=== PATIENT | female | born 1985 | race African-American/Black ===

== ENCOUNTER 2016-08-28 08:00 | Inpatient (IN) | payer OTHER ==
[~2016-08-28 08:00] MED LIST: CITRIC ACID/SODIUM CITRATE 30 ML UNIT-DOSE CUP PO ONE; ELECTROLYTE-148 SOLN 500 ML IV ONE
[2016-08-28 08:30] VITALS: BMI 32.5
[2016-08-28] MEDS ORDERED: ELECTROLYTE-148 SOLN 1,000 ML IV SCH (08:30)
[2016-08-28] MEDS ORDERED: ALBUTEROL SO4 6.7 GM HFA INHALER IH PRN (10:00)
--- NOTE | 2016-08-28 10:09 | HP ---
Past Medical History - Admission Chief Complaint: Here for repeat c section History of Present Illness: 31 y/o P1 with h/o previous c section and currently with SIUP at 39 weeks (EDC by dates consistent with ultrasound) here for scheduled repeat delivery. uncomplicated. O positive blood type, HIV negative, GBS positive. +FM, no VB/LOF/CTx. Previous c section 2009 complicated by pre Eclampsia - pt with normal BPS throughout this . No other complaints/ concerns. 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 Weeks Gestation by Dates: 37.6 ...EDC by Dates: 09/12/16 ...EDC by Sono: 09/03/16 Heme/Onc: No: Anemia Infectious Disease: No: HIV, MRSA, STD's Psych: No: Anxiety, Bipolar, Depression Endocrine: No: Diabetes Mellitus, Hyperthyroidism, Hypothyroidism - Past Surgical History Past Surgical History: Yes: Hx Myomectomy: No Hx Transabdominal Cerclage: No - Smoking History Smoking history: Never smoked Have you smoked in the past 12 months: No - Alcohol/Substance Use Hx Alcohol Use: No - Social History Usual Living Arrangement: Yes: With Significant Other ADL: Independent History of Recent Travel: No Home Medications - Allergies Allergies/Adverse Reactions: Allergies Allergy/AdvReac Type Severity Reaction Status Date / Time No Known Allergies Allergy Verified 08/28/16 08:11 - Home Medications Home Medications: Ambulatory Orders Albuterol Sulfate Inhaler - [Ventolin Hfa Inhaler -] 1 puff IH BID 03/01/16 Vit/Iron Fumarate/FA [ Tablet] 1 each PO DAILY 03/01/16 Review of Systems - Review of Systems Constitutional: reports: No Symptoms Eyes: reports: No Symptoms HENT: reports: No Symptoms Neck: reports: No Symptoms Cardiovascular: reports: No Symptoms Respiratory: reports: No Symptoms Gastrointestinal: reports: No Symptoms Genitourinary: reports: No Symptoms Breasts: reports: No Symptoms Reported Musculoskeletal: reports: No Symptoms Integumentary: reports: No Symptoms Neurological: reports: No Symptoms Endocrine: reports: No Symptoms Hematology/Lymphatic: reports: No Symptoms Psychiatric: reports: No Symptoms Physical Exam - Maternity Vital Signs: Vital Signs Temperature 98.0 F 08/28/16 08:17 Pulse Rate 74 08/28/16 08:17 Respiratory Rate 20 08/28/16 08:17 Blood Pressure 116/66 08/28/16 08:17 O2 Sat by Pulse Oximetry (%) Constitutional: Yes: Well Nourished, No Distress, Calm HENT: Yes: Atraumatic, Normocephalic, Other Neck: Yes: Supple Cardiovascular: Yes: Regular Rate and Rhythm Lungs: Clear to auscultation - Abdominal Exam/OB Fundal Height: 40 Number of Fetuses: Single Presentation: Vertex Contractions: No - Vaginal Exam/OB Vaginal Bleediing: No Amniotic Membrane Status: Intact Presentation: Vertex/Position - Physical Exam Psychiatric: Yes: Alert, Oriented Hemorrhage Risk Assessment - Risk Factors Medium Risk Factors: Yes: Prior , uterine surgery,or multiple laparotomies High Risk Factors: Yes: None Risk Score: 1 Risk Level: Medium Risk Problem List - Problems (1) Term Code(s): Z34.80 - ENCOUNTER FOR SUPRVSN OF NORMAL , UNSP TRIMESTER (2) Asthma affecting , antepartum Code(s): O99.519 - DISEASES OF THE RESP SYS COMP , UNSP TRIMESTER J45.909 - UNSPECIFIED ASTHMA, UNCOMPLICATED Assessment/Plan 31 y/o here for repeat c section with SIUP - AFVSS - NPO -SCDs - Poole catheter - Consents signed, R/B/A discussed - nursery/anesthesia aware
[2016-08-28] MEDS: OXYTOCIN 20 UNITS in 0.9% NS 1,000 ML IV SCH ×3 (10:40→20:55)
[2016-08-28] MEDS ORDERED: TUBERCULIN PPD 5 TU/0.1ML SYRINGE (IN PATIENT USE ONLY) ID ONE (11:00)
[2016-08-28] MEDS ORDERED: ONDANSETRON 4 MG/2 ML VIAL IVPB PRN (11:03)
[2016-08-28] MEDS ORDERED: morphine SULFATE/Preservative Free 0.5 MG/ML (1cc Syringe) SPIN ONE (11:03)
[2016-08-28] MEDS ORDERED: METHYLERGONOVINE MALEATE 0.2 MG/1 ML AMP IM PRN (11:06)
[2016-08-28] MEDS ORDERED: IBUPROFEN 600 MG TABLET (FP) PO PRN (11:06)
[2016-08-28] MEDS ORDERED: SENNOSIDES/DOCUSATE COMBO (SENNA PLUS) TABLET (UD) PO PRN (11:06)
[2016-08-28] MEDS ORDERED: oxyCODONE HCL 5 MG TABLET PO PRN (11:10)
--- NOTE | 2016-08-28 12:27 | SURG ---
Surgery [address] Stenographer Note [address] Stenographer: Brent Collazo PA-C Date of Service: 08/28/16 Diagnosis: 39 weeks with single intrauterine Procedure: section I was present for the entirety of the operative procedure. For further detail, please refer to operative report. Visit type - Case Type Case Type: Scheduled Admission - New patient This patient is new to me today: Yes Date on this admission: 08/28/16
--- NOTE | 2016-08-28 12:30 | OP ---
<Brent Collazo - Last Filed: 08/28/16 12:28> Operative Note - Note: Operative Date: 08/28/16 Pre-Operative Diagnosis: 39 weeks SIUP, h/o Operation: section Post-Operative Diagnosis: Same as Pre-op Surgeon: Joyce Marsh Government Affairs Specialist: Brent Collazo Anesthesiologist/TRANSPORT NURSE: Sudeep Berger Anesthesia: Spinal Estimated Blood Loss (mls): 200 Drains, Volume Out (mls): 150 (hernandez) Fluid Volume Replaced (mls): 1,000 Operative Report Dictated: Yes <Joyce Marsh - Last Filed: 08/28/16 14:32> Operative Note - Note: Operative Date: 08/28/16 Pre-Operative Diagnosis: SIUP at 39 weeks, prior delivery Operation: repeat delivery Findings: normal bilateral fallopian tubes and ovaries Surgeon: Joyce Marsh Government Affairs Specialist: Brent Collazo Anesthesiologist/TRANSPORT NURSE: Sudeep Berger Anesthesia: Spinal Specimens Removed: placenta Estimated Blood Loss (mls): 600 (error in note above) Operative Report Dictated: Yes
[2016-08-28] MEDS: IBUPROFEN 800 MG/8 ML IJ IVPB PRN (14:48)
[2016-08-28 15:23] LABS: URINE MARIJUANA THC NEGATIVE ng/ml (CUTOFF=50)
[2016-08-28] MEDS: FERROUS SO4 325 MG TABLET (FP) PO SCH (17:22)
[2016-08-28] MEDS: CEFAZOLIN (PRE-DOCKED) 50 ML IVPB SCH (17:23)
[2016-08-29] MEDS: CEFAZOLIN (PRE-DOCKED) 50 ML IVPB SCH ×2 (02:39→09:56)
[2016-08-29] MEDS: IBUPROFEN 800 MG/8 ML IJ IVPB PRN (04:57)
[2016-08-29] MEDS: OXYTOCIN 20 UNITS in 0.9% NS 1,000 ML IV SCH (06:38)
--- NOTE | 2016-08-29 07:08 | PN ---
Post Progress Note - Subjective Subjective: Pt seen/evaluated. Doing well. Pain controlled. Hernandez catheter removed this a.m., no void yet. Tolerating clears, passing flatus. Minimal VB. NO other complaints. Baby transfered to [facility] for r/o myelomeningocele. Pt coping well. Type of Delivery: Repeat C/S Vital Signs: Vital Signs Temperature 98.0 F 08/29/16 06:00 Pulse Rate 69 08/29/16 06:00 Respiratory Rate 18 08/29/16 06:00 Blood Pressure 116/71 08/29/16 06:00 O2 Sat by Pulse Oximetry (%) 100 08/28/16 12:30 Uterus: Yes: Fundus Firm, Fundus below umbilicus Incision: Yes: Dressing dry and intact Abdomen/GI: Yes: Abdomen soft, Passing flatus, Tolerating PO. No: Abdominal Distention, Tender Lochia: Yes: Rubra Lochia, amount: Small Extremities: Yes: Calves non-tender. No: Edema Perineum: Yes: Intact Activity: Ambulating Problem List - Problems (1) Term Code(s): Z34.80 - ENCOUNTER FOR SUPRVSN OF NORMAL , UNSP TRIMESTER (2) Asthma affecting , antepartum Code(s): O99.519 - DISEASES OF THE RESP SYS COMP , UNSP TRIMESTER J45.909 - UNSPECIFIED ASTHMA, UNCOMPLICATED (3) delivery delivered Code(s): O82 - ENCOUNTER FOR DELIVERY WITHOUT INDICATION Assessment/Plan 31 y/o POD#1 s/p repeat delivery - AFVSS - CBC pending - hernandez catheter removed, awaiting void - advance diet as tolerated - PO pain meds - routine care
[2016-08-29] MEDS: FERROUS SO4 325 MG TABLET (FP) PO SCH ×2 (08:00→18:25)
[2016-08-29 08:36] LABS: BASOPHIL 0.5 % (0-2.0); EOSINOPHIL 0.5 % (0-4.5); MEAN CELL VOLUME 78.8 fl (80-96); MEAN PLT VOLUME 9.6 fl (7.5-11.1); NEUTROPHILS 79.7 % (42.8-82.8); PLATELET COUNT 137 K/MM3 (134-434); RDW 14.4 % (11.6-15.6); WHITE BLOOD COUNT 12.7 K/mm3 (4.0-10.0)
[2016-08-29] MEDS: ENOXAPARIN NA (PORCINE) 40 MG/0.4 ML DISP.SYRIN SQ SCH (09:18)
[2016-08-29] MEDS: PRENATAL VITAMINS W/ FOLIC ACID TABLET (FP) PO SCH (09:18)
[2016-08-29] MEDS: IBUPROFEN 600 MG TABLET (FP) PO PRN ×3 (09:59→23:36)
[2016-08-29] MEDS: SIMETHICONE 80 MG TAB.CHEW (FP) PO PRN ×4 (10:00→23:32)
[2016-08-29] MEDS: ACETAMINOPHEN 325 MG TABLET (FP) PO PRN ×2 (10:00→19:04)
--- NOTE | 2016-08-29 10:22 | PN ---
Progress Note (short form) - Note Progress Note: Anesthesia postop note 31 y/o F s/p spinal anesthesia for repeat section, duramorph for pain management POD#1, vss, pain well controlled, aaox3, sensorimotor intact distally. No anesthesia complications.
[2016-08-29] MEDS ORDERED: BISACODYL 10 MG SUPP.RECT RC PRN (11:06)
[2016-08-29] MEDS ORDERED: PNEUMOC 13-VAL CONJ-DIP CRM/PF 0.5 ML DISP.SYRIN IM ONE (14:00)
[2016-08-29] MEDS ORDERED: DIPHTH,PERTUSS(ACELL),TET 0.5 ML DISP.SYRIN IM ONE (14:00)
[2016-08-29] MEDS: oxyCODONE HCL 5 MG TABLET PO PRN ×2 (19:06→23:33)
[2016-08-30] MEDS: SIMETHICONE 80 MG TAB.CHEW (FP) PO PRN ×2 (04:52→08:50)
[2016-08-30] MEDS: IBUPROFEN 600 MG TABLET (FP) PO PRN ×2 (04:52→08:50)
[2016-08-30] MEDS: oxyCODONE HCL 5 MG TABLET PO PRN ×2 (04:53→08:49)
[2016-08-30] MEDS: FERROUS SO4 325 MG TABLET (FP) PO SCH (08:26)
[2016-08-30] MEDS: PRENATAL VITAMINS W/ FOLIC ACID TABLET (FP) PO SCH (11:04)
[2016-08-30] MEDS: ENOXAPARIN NA (PORCINE) 40 MG/0.4 ML DISP.SYRIN SQ SCH (11:04)
[2016-08-30 11:42] VITALS: BP 124/63; PULSE 71; TEMP 98.5
--- NOTE | 2016-09-02 14:20 | PATH ---
Surgical Pathology Report Patient Name: DAVID LENTZ [facility]. Rec. #: [id number] /Age/Gender: 1985 (Age: 31) / F Account: [id number] Location: 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 Specimen(s) Received PLACENTA Clinical History Previous for ???, 2008 Final Diagnosis PLACENTA, DELIVERY: FOCALLY DISRUPTED THIRD TRIMESTER PLACENTA WITH INTERVILLOUS FIBRIN DEPOSITION, FOCAL CALCIFICATION, THREE VESSEL UMBILICAL CORD AND UNREMARKABLE PLACENTAL MEMBRANES. Electronically Signed Miles Hairston M.D. Gross Description The specimen is received fresh labeled placenta and is a 583 gram, 19.0 x 14.0 x 3.2 cm. placenta with attached membranes and umbilical cord. The attached membranes are muhammad, translucent with focal opacities and insert marginally. The umbilical cord measures 43 cm. in length and averages 1.2 cm. in diameter. The cord inserts eccentrically, 2 cm. to the nearest margin. No true knots or strictures are identified. Cut surface of the umbilical cord reveals 3 vessels. The surface is andersen blue with moderate fibrin deposition and appropriate caliber vessels. The maternal surface is red-brown with focal defects. Sectioning reveals red-brown, spongy parenchyma. No lesions are identified. Adhesive Bandage Making Operator sections are submitted in three cassettes as follows: 1- membrane rolls and umbilical cord; 2-3- full thickness sections of placenta. /08/30/2016 [facility]08/30/2016
== END 2016-08-30 13:00 | disposition home or self-care (01) | DRG 540 ==
LOC: JLDR 08:00 → J3W 13:01
PROVIDERS: ADMIT Obstetrics & Gynecology; ATTEND Obstetrics & Gynecology
PROC: 10D00Z1 Extraction of Products of Conception, Low, Open Approach (ICD-10-PCS; principal; 2016-08-28)
DX: O34.211 Maternal care for low transverse scar from previous cesarean delivery (principal); O99.519 Diseases of the respiratory system complicating pregnancy, unspecified trimester; J45.909 Unspecified asthma, uncomplicated; Z3A.39 39 weeks gestation of pregnancy; Z37.0 Single live birth
CPT/HCPCS: 36415; 80307; 85025; 88307-TC; 90670; 90715

== ENCOUNTER 2017-05-16 12:27 | Emergency (ER) | payer OTHER ==
[2017-05-16 12:45] VITALS: BP 101/58; PULSE 73; TEMP 98.2; BMI 29.2
--- NOTE | 2017-05-16 13:28 | PDOC ---
History of Present Illness - General Chief Complaint: Cold Symptoms Stated Complaint: CONGESTION, FEVER - History of Present Illness Initial Comments: 05/16/17 21:26 This 32-year-old female presents to the emergency room with a complaint of a cough and fever. She states it's been going on for a few days. She is here to see about getting some relief. Past History - Past Medical History Allergies/Adverse Reactions: Allergies Allergy/AdvReac Type Severity Reaction Status Date / Time No Known Allergies Allergy Verified 05/16/17 12:42 Home Medications: Ambulatory Orders NK [No Known Home Medication] 05/16/17 Asthma: No Cancer: No Cardiac Disorders: No COPD: No Diabetes: No HTN: No Seizures: No Thyroid Disease: No - Reproductive History (#): 2 Para: 1 Spontaneous : 0 - Immunization History Immunization Up to Date: Yes - Suicide/Smoking/Psychosocial Hx Smoking History: Never smoked Have you smoked in the past 12 months: No Information on smoking cessation initiated: No Hx Alcohol Use: No Drug/Substance Use Hx: No Substance Use Type: None Hx Substance Use Treatment: No Review of Systems - Review of Systems Able to Perform ROS?: Yes Comments:: 05/16/17 21:26 General statement: Complaining of a cold symptoms Hematology: neg history of bleeding/blood thinners Skin: Neg for lesions, rash, bruising. HEENT: Positive nasal congestion symptoms as well as a fever Respiratory: Neg SOB or difficulty in breathing Cardiac: Neg chest pain GI: Neg pain, n/v : Neg problems on voiding MS: Neg for joint pain/stiffness, no edema Neuro: Neg for LOC, weakness, Endocrine: Neg for excess thirst/hunger, cold/heat intolerance, excess sweating Allergies: Neg for allergies *Physical Exam - Vital Signs Last Vital Signs Temp Pulse Resp BP Pulse Ox 98.2 F 73 15 101/58 98 05/16/17 12:43 05/16/17 12:43 05/16/17 12:43 05/16/17 12:43 05/16/17 12:43 - Physical Exam Comments: 05/16/17 21:27 General Appearance: This 32-year-old female with complaint of cough and cold V/S: hemodynamically stable, afebrile Skin: WNL of pt's skin color, no signs of pallor, mottling, cyanosis Head:symmetrical Eyes: EOM's intact, PERRLA Ears: denies pain Nose: patent however congested Throat: lips, teeth, gums, tongue, buccal mucos pink and moist Lungs: Chest symmetry equal. Cap refill <3 seconds. Lung sounds clear Cardiac: PMI at R 4MCL space, pos S1 and S2, regular rate. Abdomen: Soft, round, nontender : Not observed Muscularskeletal: Gait steady, ambulated in to ER, no edema +PMS Neuro: AAOx3, cognitively intact, speech clear and appropriate. Medical Decision Making - Medical Decision Making 05/16/17 21:28 Patient initially seen and examined. Patient is seen with a finding of a positive viral illness cold. Encouraged her to take *DC/Admit/Observation/Transfer Diagnosis at time of Disposition: Viral respiratory illness - Discharge Dispostion Disposition: HOME Condition at time of disposition: Stable Admit: No - Referrals - Patient Instructions Printed Discharge Instructions: DI for Viral Upper Respiratory Infection -- Adult Additional Instructions: Discharge instructions 1. Please follow up with your primary physician within the next few days and explain that you have been seen here in the Emergency Room. 2. If you experience any worsening of symptoms, please return to the ER 3. Rest 4. Drink plenty of water - Post Discharge Activity
== END 2017-05-16 13:31 | disposition home or self-care (01) ==
LOC: JERFT 12:27
DX: J06.9 Acute upper respiratory infection, unspecified (principal); B97.89 Other viral agents as the cause of diseases classified elsewhere
CPT/HCPCS: 99281-25

== ENCOUNTER 2018-05-29 12:39 | Emergency (ER) | payer OTHER ==
[2018-05-29 12:51] VITALS: BP 121/71; PULSE 65; TEMP 98.4; BMI 30.2
--- NOTE | 2018-05-29 13:25 | PDOC ---
History of Present Illness - General Chief Complaint: Rash Stated Complaint: HEADACHE Time Seen by Provider: 05/29/18 13:16 History Source: Patient - History of Present Illness Associated Symptoms: reports: shortness of breath Past History - Past Medical History Allergies/Adverse Reactions: Allergies Allergy/AdvReac Type Severity Reaction Status Date / Time No Known Allergies Allergy Verified 05/29/18 12:44 Home Medications: Ambulatory Orders Albuterol Sulfate Inhaler - [Ventolin HFA Inhaler -] 1 - 2 inh PO Q4H #1 inhaler 05/29/18 Asthma: No Cancer: No Cardiac Disorders: No COPD: No Diabetes: No HTN: No Seizures: No Thyroid Disease: No - Reproductive History (#): 2 Para: 1 Spontaneous : 0 - Immunization History Immunization Up to Date: Yes - Suicide/Smoking/Psychosocial Hx Smoking History: Never smoked Have you smoked in the past 12 months: No Information on smoking cessation initiated: No Hx Alcohol Use: Yes Drug/Substance Use Hx: No Substance Use Type: None Hx Substance Use Treatment: No Review of Systems - Review of Systems Constitutional: No: Chills, Fever Respiratory: Yes: Shortness of Breath. No: Wheezing Cardiac (ROS): Yes: Chest Tightness. No: Chest Pain Integumentary: Yes: Pruritus, Rash Neurological: Yes: Headache *Physical Exam - Vital Signs Last Vital Signs Temp Pulse Resp BP Pulse Ox 98.4 F 65 18 121/71 99 05/29/18 12:45 05/29/18 12:45 05/29/18 12:45 05/29/18 12:45 05/29/18 12:45 - Physical Exam General Appearance: Yes: Appropriately Dressed. No: Apparent Distress HEENT: positive: Normal Voice Neck: positive: Supple Respiratory/Chest: positive: Lungs Clear, Normal Breath Sounds. negative: Respiratory Distress, Wheezing Cardiovascular: positive: Regular Rate, S1, S2 Integumentary: positive: Dry, Warm, Other (non-specific flesh colored macular rash of varying sizes to upper extremities) Moderate Sedation - Procedure Monitoring Vital Signs: Procedure Monitoring Vital Signs Temperature 98.4 F 05/29/18 12:45 Pulse Rate 65 05/29/18 12:45 Respiratory Rate 18 05/29/18 12:45 Blood Pressure 121/71 05/29/18 12:45 O2 Sat by Pulse Oximetry (%) 99 05/29/18 12:45 Medical Decision Making - Medical Decision Making 05/29/18 13:20 33 yo F, h/o asthma, no admissions/intubations, here w/ multiple complaints that she attributes to mold infestation in her apartment. Patient states for the past month, she's noticed a pruritic rash to upper extremities, mostly to upper exts b/l and now experiencing more frequent asthma attacks. Also reports vague JOHNSON. Patient states her son has had similar breathing problems which his cheese wrapper attributes to mold infestation. Patient states she reached out to the health department but was told that she needs to contact housing department first. Patient states she is currently attempting to get in touch with them. Pt asx at this time. Well dale w/exam only remarkable for non-specific skin colored macules scattered throughout upper exts b/l. Will dc w/ derm referral and refill of asthma pump. Pt encourage to continue addressing mold issue at home and f/u with her PMD *DC/Admit/Observation/Transfer Diagnosis at time of Disposition: Rash - Discharge Dispostion Disposition: HOME Condition at time of disposition: Good - Prescriptions Prescriptions: Albuterol Sulfate Inhaler - [Ventolin HFA Inhaler -] 1 - 2 inh PO Q4H #1 inhaler - Referrals Referrals: Tanya Canales MD [Staff Physician] - - Patient Instructions Additional Instructions: Use your asthma pump for shortness of breath as needed Your rash is non-specific and you will need a infection prevention coordinator to further evaluate you Your concern today was that your symptoms are due to the mold in your apartment as they get worse when you are in that environment. We cannot prove or disprove that in the ED. If you believe this to be the case, please address with your landlord and continue to follow up with your PMD - Post Discharge Activity Forms/Work/School Notes: Back to Work
== END 2018-05-29 14:05 | disposition home or self-care (01) ==
LOC: JER 12:39
DX: R21 Rash and other nonspecific skin eruption (principal); J45.909 Unspecified asthma, uncomplicated
CPT/HCPCS: 99281-25

== ENCOUNTER 2023-11-08 14:39 | Emergency (ER) | payer OTHER ==
[2023-11-08 14:47] VITALS: BP 104/64; PULSE 74; RESP 18; TEMP 98.8
[2023-11-08 15:36] LABS: BASO % 0.9 % (0-2.0); EOS % 1.2 % (0-4.5); HEMATOCRIT 32.9 % (32.4-45.2); HEMOGLOBIN 10.9 GM/dL (10.7-15.3); LYMPH % 32.9 % (8-40); MCHC 33.1 g/dl (32.0-36.0); MEAN CELL VOLUME 72.3 fl (80-96); MEAN PLT VOLUME 8.2 fl (7.5-11.1); MONO % 5.5 % (3.8-10.2); NEUT % 59.5 % (42.8-82.8); PLATELET COUNT 225 10^3/uL (134-434); RBC 4.55 M/mm3 (3.60-5.2); RDW 21.9 % (11.6-15.6); WHITE BLOOD COUNT 7.7 K/mm3 (4.0-10.0)
[2023-11-08 15:39] LABS: EPI CELLS >36 /uL (0-25.1); HYALINE CASTS 0 /uL (0-3.1); URINE APPEARANCE CLEAR; URINE BACTERIA 1228 /uL (0-1359); URINE BILIRUBIN NEGATIVE (NEGATIVE); URINE COLOR YELLOW; URINE GLUCOSE (UA) NEGATIVE (NEGATIVE); URINE KETONE NEGATIVE (NEGATIVE); URINE LEUK ESTERASE NEGATIVE (NEGATIVE); URINE NITRITE NEGATIVE (NEGATIVE); URINE PROTEIN NEGATIVE (NEGATIVE); URINE RBC 8 /uL (0-23.9); URINE WBC 9 /uL (0-25.8)
[2023-11-08 15:55] LABS: POTASSIUM 4.1 mmol/L (3.5-5.1)
[2023-11-08 15:57] LABS: CALCIUM 8.7 mg/dL (8.5-10.1)
[2023-11-08 15:59] LABS: ALBUMIN 3.3 g/dl (3.4-5.0)
[2023-11-08 16:01] LABS: CREATININE 0.7 mg/dL (0.55-1.3)
[2023-11-08 16:02] LABS: ANISOCYTOSIS 2+; MACROCYTOSIS 0
[2023-11-08 16:03] LABS: BILIRUBIN,TOTAL 0.2 mg/dL (0.2-1); TOT PROT 6.5 g/dl (6.4-8.2)
[2023-11-08 19:34] LABS: EPI CELLS 24 /uL (0-25.1); HYALINE CASTS 1 /uL (0-3.1); PH,URINE 5.5 (5.0-8.0); URINE APPEARANCE CLEAR; URINE BACTERIA 82 /uL (0-1359); URINE BILIRUBIN NEGATIVE (NEGATIVE); URINE COLOR YELLOW; URINE GLUCOSE (UA) NEGATIVE (NEGATIVE); URINE KETONE 1+ (NEGATIVE); URINE LEUK ESTERASE NEGATIVE (NEGATIVE); URINE NITRITE NEGATIVE (NEGATIVE); URINE PROTEIN NEGATIVE (NEGATIVE); URINE RBC 5 /uL (0-23.9); URINE UROBILINOGEN 0.2 mg/dL (0.2-1.0); URINE WBC 15 /uL (0-25.8)
== END 2023-11-08 19:56 | disposition home or self-care (01) ==
LOC: JER 14:39
DX: O09.521 Supervision of elderly multigravida, first trimester (principal); O20.9 Hemorrhage in early pregnancy, unspecified; O34.81 Maternal care for other abnormalities of pelvic organs, first trimester; N83.12 Corpus luteum cyst of left ovary; Z3A.08 8 weeks gestation of pregnancy
CPT/HCPCS: 36415; 76817-TC; 80053; 81003; 84702; 85025; 87086; 99284-25

== ENCOUNTER 2024-06-03 07:30 | Inpatient (IN) | payer OTHER ==
[2024-06-03] MEDS ORDERED: AMPICILLIN SODIUM 2 GM VIAL ONE (08:40)
[2024-06-03 08:52] VITALS: BMI 39.4
[2024-06-03] MEDS: AMPICILLIN - 2 GM in SODIUM CHLORIDE 100 ML IVPB ONE (08:59)
[2024-06-03] MEDS: ELECTROLYTE-148 SOLN 1,000 ML IV ONE (09:00)
[2024-06-03 09:17] LABS: ABSOLUTE IMMATURE GRANULOCYTES 0.05 x10^3/uL (0.0-0.031); BASOPHILS # 0.04 x10^3/uL (0.01-0.08); EOSINOPHIL % 1.2 % (0.7-5.8); EOSINOPHILS # 0.09 x10^3/uL (0.04-0.36); HEMATOCRIT 35.8 % (34.1-44.9); HEMOGLOBIN 11.8 g/dL (11.2-15.7); MEAN PLT VOLUME 11.9 fl (9.4-12.3); MONOCYTE % 7.7 % (4.7-12.5); PLATELET COUNT 140 x10^3/uL (182-369); RDW 14.8 % (12.1-16.8)
[2024-06-03 09:21] LABS: POC NITRAZINE POS
[2024-06-03 09:22] LABS: INR 1.02 (0.83-1.09); PROTHROMBIN TIME (PATIENT) 11.1 SEC (9.7-13.0)
[2024-06-03 09:25] LABS: ACTIVATED PTT 25.1 SECONDS (25.2-36.5)
[2024-06-03 10:14] LABS: POTASSIUM 4.1 mmol/L (3.5-5.1)
[2024-06-03 10:17] LABS: BLOOD UREA NITROGEN 12.9 mg/dL (7-18)
[2024-06-03 10:21] LABS: CREATININE 0.6 mg/dL (0.55-1.3)
[2024-06-03 11:43] LABS: SYPHILIS W/ RPR CONF NON-REACTIVE (NONREACTIVE)
[2024-06-03] MEDS ORDERED: TERBUTALINE SULFATE 1 MG/1 ML VIAL SQ ONE (11:44)
[2024-06-03] MEDS: TERBUTALINE SULFATE 1 MG/1 ML VIAL SQ ONE (11:50)
[2024-06-03 12:11] LABS: HIV INTERPRETATION NEGATIVE (NEGATIVE)
[2024-06-03] MEDS: CITRIC ACID/SODIUM CITRATE 30 ML UNIT-DOSE CUP PO ONE (12:30)
[2024-06-03] MEDS ORDERED: morphine SULFATE/PF 1 MG/2 ML (2cc Syringe - QUVA) ONE (12:42)
[2024-06-03] MEDS ORDERED: FENTANYL CITRATE/PF 50 MCG/ML VIAL ONE (12:43)
[2024-06-03] MEDS ORDERED: OXYTOCIN 10 UNITS/ML VIAL ONE ×2 (13:31→13:36)
[2024-06-03] MEDS ORDERED: ceFAZolin SODIUM 1 GM VIAL ONE (13:31)
[2024-06-03] MEDS ORDERED: ONDANSETRON 4 MG/2 ML VIAL ONE (13:31)
[2024-06-03] MEDS ORDERED: PHENYLEPHRINE HCL 10 MG/1 ML SINGLE DOSE VIAL ONE (13:36)
[2024-06-03] MEDS ORDERED: KETOROLAC TROMETHAMINE 30 MG/1 ML VIAL ONE (13:50)
[2024-06-03 14:03] LABS: CORD BASE EXCESS -1.8 mmol/L (0-2); CORD HCO3 25.2 mmHg (20-29); CORD PCO2 52.3 mmHg (30-78); CORD pH 7.3 (7.14-7.44)
[2024-06-03 14:05] LABS: CORD BASE EXCESS -3.3 mmol/L (0-2); CORD HCO3 25.2 mmHg (20-29); CORD PCO2 60.2 mmHg (30-78); CORD pH 7.24 (7.14-7.44)
[2024-06-03] MEDS ORDERED: ONDANSETRON 4 MG/2 ML VIAL IVPB PRN (14:06)
[2024-06-03] MEDS: CEFAZOLIN SODIUM 2 GM in DEXTROSE 5%-WATER 100 ML IVPB SCH (16:15)
[2024-06-03] MEDS: ACETAMINOPHEN 1000 MG/100 ML BAG IVPB PRN (16:16)
[2024-06-03] MEDS: OXYTOCIN 20 UNITS in 0.9% NS 20 UNIT/1,000 ML INFUS.BAG IV SCH (16:16)
[2024-06-03] MEDS ORDERED: ACETAMINOPHEN INJECTION 100 ML ONE (16:17)
[2024-06-03] MEDS: SENNOSIDES/DOCUSATE COMBO (SENNA PLUS) TABLET (UD) PO SCH (22:00)
[2024-06-03] MEDS: IBUPROFEN (CALDOLOR) 800 MG/200 ML PREMIX BAGS IVPB PRN (22:56)
[2024-06-04] MEDS: oxyCODONE HCL 5 MG TABLET PO PRN (04:57)
[2024-06-04 07:43] LABS: ABSOLUTE IMMATURE GRANULOCYTES 0.04 x10^3/uL (0.0-0.031); BASOPHILS # 0.04 x10^3/uL (0.01-0.08); EOSINOPHIL % 0.7 % (0.7-5.8); EOSINOPHILS # 0.07 x10^3/uL (0.04-0.36); HEMATOCRIT 32.9 % (34.1-44.9); HEMOGLOBIN 11.2 g/dL (11.2-15.7); MEAN CELL VOLUME 76.2 fl (79.4-94.8); MEAN PLT VOLUME 12.2 fl (9.4-12.3); MONOCYTE # 0.89 x10^3/uL (0.24-0.86); PLATELET COUNT 148 x10^3/uL (182-369); RDW 14.7 % (12.1-16.8)
[2024-06-04] MEDS: ENOXAPARIN NA (PORCINE) 40 MG/0.4 ML DISP.SYRIN SQ SCH (09:05)
[2024-06-04] MEDS: IBUPROFEN 400 MG TABLET (FP) PO PRN (09:06)
[2024-06-04] MEDS: SIMETHICONE 80 MG TAB.CHEW (FP) PO PRN (09:06)
[2024-06-04] MEDS: PRENATAL VITAMINS W/ FOLIC ACID TABLET (FP) PO SCH (09:06)
[2024-06-04] MEDS ORDERED: BISACODYL 10 MG SUPP.RECT RC PRN (14:06)
[2024-06-04] MEDS: ACETAMINOPHEN 325 MG TABLET (FP) PO PRN (14:06)
[2024-06-04] MEDS: IBUPROFEN 600 MG TABLET (FP) PO PRN (18:01)
[2024-06-04] MEDS: morphine SULFATE/PF 1 MG/2 ML (2cc Syringe - QUVA) IT ONE (23:44)
[2024-06-05 22:35] VITALS: RESP 18
[2024-06-06 12:20] VITALS: BP 117/76; PULSE 77; TEMP 98.3
== END 2024-06-06 12:45 | disposition home or self-care (01) | DRG 540 ==
LOC: JLDR 07:30 → J3W 16:20
PROVIDERS: ADMIT Obstetrics & Gynecology; ATTEND Obstetrics & Gynecology
PROC: 10D00Z1 Extraction of Products of Conception, Low, Open Approach (ICD-10-PCS; principal; 2024-06-03)
DX: O34.211 Maternal care for low transverse scar from previous cesarean delivery (principal); N85.8 Other specified noninflammatory disorders of uterus; O99.214 Obesity complicating childbirth; O99.824 Streptococcus B carrier state complicating childbirth; Z3A.39 39 weeks gestation of pregnancy; Z37.0 Single live birth
CPT/HCPCS: 36415; 36600; 59409; 80048; 82803; 83986-QW; 85025; 85610; 85730; 86780; 86850; 86900; 86901; 87389; 88307-TC; J0131